=== PATIENT | male | born 1960 | race Caucasian/White ===

== ENCOUNTER 2022-03-14 21:13 | Emergency (ER) | payer MEDICAID ==
[~2022-03-14] VITALS: Ht 162.6 cm; Wt 52.2 kg
[2022-03-14 21:30] VITALS: BP 141/66
--- NOTE | 2022-03-14 22:34 | NUR ---
Patient taken to chair A.
--- NOTE | 2022-03-14 22:55 | NUR ---
Dr. Graves examining patient.
[2022-03-14] MEDS ORDERED: NACL 0.9% 1,000 ML IV ONE (23:05)
--- NOTE | 2022-03-14 23:11 | NUR ---
COVID-19 swabs collected and sent to lab.
[2022-03-14 23:24] LABS: BASOPHILS # (AUTO) 0.1 K/uL (0.00-0.22); BASOPHILS % (AUTO) 0.5 % (0.0-2.0); EOSINOPHILS % (AUTO) 0.2 % (0.0-4.0); HEMOGLOBIN 12.7 g/dL (12.0-18.0); LYMPHOCYTES # (AUTO) 1.5 K/uL (2.0-11.5); LYMPHOCYTES % (AUTO) 7.3 % (20.5-51.1); MEAN CORPUSCULAR HEMOGLOBIN 31 pg (27-31); MEAN CORPUSCULAR HGB CONC 34 g/dL (33-37); MEAN CORPUSCULAR VOLUME 88.9 fL (80-94); MONOCYTES # (AUTO) 1.1 K/uL (0.8-1.0); MONOCYTES % (AUTO) 5.2 % (1.7-9.3); NEUTROPHILS # (AUTO) 18.1 K/uL (1.8-7.7); PLATELET COUNT (AUTO) 552 K/uL (140-450); RED BLOOD CELL COUNT(AUTO) 4.16 MIL/uL (4.20-6.10); RED CELL DISTRIBUTION WIDTH 12.1 % (11.6-13.7); WHITE BLOOD COUNT (AUTO) 20.9 K/uL (4.8-10.8)
[2022-03-14] MEDS ORDERED: cefTRIAXone 1,000 MG VIAL ONE (23:27)
[2022-03-14 23:36] LABS: ANION GAP 16.8 (8-16); CARBON DIOXIDE 25.3 mmol/L (21-32); CREATININE 1.9 mg/dL (0.6-1.3); POTASSIUM 4.1 mmol/L (3.5-5.1)
--- NOTE | 2022-03-14 23:36 | NUR ---
Patient ambulated to bed 8.
[2022-03-14 23:57] LABS: NEUTROPHILS % (AUTO) 86.8 % (42.2-75.2)
--- NOTE | 2022-03-15 00:04 | NUR ---
PT TAKEN TO CT
--- NOTE | 2022-03-15 00:14 | NUR ---
PT RETURN FROM CT
--- NOTE | 2022-03-15 00:43 | NUR ---
61YR OLD MALE BIB SELF C/O SWOLLEN JAW S/P DENTAL SURGERY. SWELLING X1WK 10/10 PAIN CURRENTLY. PT DENIES ANY SOB OR CP . TALKING IN FULL SENTENCES NO DISTRESS NOTED. SKIN WARM AND DRY. SKIN INTACT. PT IS A&OX4. PT RESTING IN BED. HOB ELEVATED. BED AT LOWEST POSITION. NKDA NO MED HX TO NOTE
--- NOTE | 2022-03-15 02:47 | NUR ---
PT RESTING RESP EVEN AND UNLABORED. HOB ELEVATED. NO DISTRESS NOTED. DENIES ANY PAIN CURRENTLY. PENDING DISPO.
--- NOTE | 2022-03-15 03:18 | NUR ---
Dr. Graves explained results and treatment plans.
[2022-03-15] MEDS ORDERED: ACET-8386 PO (03:37)
[2022-03-15] MEDS ORDERED: CEPH-588 PO (03:37)
[2022-03-15] MEDS ORDERED: IBUP-2213 PO (03:37)
[2022-03-15 04:03] VITALS: BP 127/62
--- NOTE | 2022-03-15 04:03 | NUR ---
Patient discharged with v/s stable. Written and verbal after care instructions given and explained. Patient alert, oriented and verbalized understanding of instructions. Ambulatory with steady gait. All questions addressed prior to discharge. ID band removed. Patient advised to follow up with PMD. Rx of KEFLEX HYDROCODON IBUPROFEN given. Patient educated on indication of medication including possible reaction and side effects. Opportunity to ask questions provided and answered.
== END 2022-03-15 04:03 | disposition home or self-care (01) ==
LOC: MED 21:13
DX: L02.01 Cutaneous abscess of face (principal); Z20.822 Contact with and (suspected) exposure to COVID-19
CPT/HCPCS: 36415; 70487; 80048; 85025; 87040; 87426; 96365; 99285; J0696; J7030; Q9967

== ENCOUNTER 2022-03-17 10:03 | Inpatient (IN) | payer MEDICAID ==
[~2022-03-17] VITALS: Ht 162.6 cm; Wt 52.7 kg
[~2022-03-17 10:03] MED LIST: ACET-8386 PO; CEPH-588 PO; IBUP-2213 PO
[2022-03-17 10:17] VITALS: BP 119/60
--- NOTE | 2022-03-17 10:30 | NUR ---
BIB SELF C/O FACIAL SWELLING X 2 WEEKS. SEEN HERE SAME S/S 3 DAYS AGO.
--- NOTE | 2022-03-17 11:44 | NUR ---
PT AMBULATED TO ER BED 7
--- NOTE | 2022-03-17 11:59 | NUR ---
LUDY QUEZADA AT BEDSIDE FOR EVALUATION
--- NOTE | 2022-03-17 12:00 | NUR ---
61YO MALE PT C/O FACIAL PAIN X2 WEEKS. PT HAD 2 MOLARS REMOVED IN THE PAST 2 WEEKS AND HAVING INCREASED PAIN / SWELLING SINCE. PT PRESENTS WITH +1 [place] FACIAL SWELLING W/ MORE NOTED IN L SIDE W/ RADIATION TO L SIDE OF NECK . SITE TENDER TO TOUCH AND HAS PAIN ON MOVEMENT. PT WAS SEEN HERE ON THE AND D/C WITH NORO AND ANTIBIOTICS , STATES BEING COMPLIANT W/ NO RELIEF. DENIES N/V/D , SOB CHEST PAIN. PT AAOX4, RESPIRATIONS EVEN AND UNLABORED. HX: DENIES NKA
[2022-03-17] MEDS ORDERED: AMPICILLIN/SULBACTAM 3 GM VIAL IM ONE (12:05)
[2022-03-17] MEDS ORDERED: NACL 0.9% 1,000 ML IV ONE ×2 (12:05→16:50)
[2022-03-17] MEDS ORDERED: MORPHINE SULFATE 4 MG/ML SYR IVP ONE ×2 (12:10→14:55)
--- NOTE | 2022-03-17 12:24 | NUR ---
PATIENT RECEIVED 4MG MORPHINE IVP ORDERED, PER PATIENT HE HAS A RIDE HOME, VERBALIZED UNDERSTANDING HE CANNOT DRIVE HOME.
[2022-03-17 12:42] LABS: BASOPHILS # (AUTO) 0.1 K/uL (0.00-0.22); BASOPHILS % (AUTO) 0.7 % (0.0-2.0); EOSINOPHILS % (AUTO) 0.1 % (0.0-4.0); HEMATOCRIT 35.3 % (36-52); HEMOGLOBIN 11.8 g/dL (12.0-18.0); LYMPHOCYTES # (AUTO) 1.1 K/uL (2.0-11.5); LYMPHOCYTES % (AUTO) 5.5 % (20.5-51.1); MEAN CORPUSCULAR HEMOGLOBIN 30 pg (27-31); MEAN CORPUSCULAR HGB CONC 34 g/dL (33-37); MONOCYTES # (AUTO) 1.1 K/uL (0.8-1.0); MONOCYTES % (AUTO) 5.1 % (1.7-9.3); NEUTROPHILS # (AUTO) 18.5 K/uL (1.8-7.7); NEUTROPHILS % (AUTO) 88.6 % (42.2-75.2); PLATELET COUNT (AUTO) 667 K/uL (140-450); RED BLOOD CELL COUNT(AUTO) 3.93 MIL/uL (4.20-6.10); RED CELL DISTRIBUTION WIDTH 11.9 % (11.6-13.7); WHITE BLOOD COUNT (AUTO) 20.9 K/uL (4.8-10.8)
[2022-03-17 12:53] LABS: ALBUMIN 2.7 g/dL (3.4-5.0); ANION GAP 17.1 (8-16); CARBON DIOXIDE 24.9 mmol/L (21-32); CREATININE 1.5 mg/dL (0.6-1.3); TOTAL BILIRUBIN 0.5 mg/dL (0.0-1.0)
[2022-03-17] MEDS ORDERED: NACL 0.9% 500 ML IV ONE (13:45)
--- NOTE | 2022-03-17 13:59 | NUR ---
RICO SWAB COLLECTED AND WALKED TO LAB
--- NOTE | 2022-03-17 16:36 | NUR ---
PT AMBULATORY TO RESTROOM
--- NOTE | 2022-03-17 16:39 | NUR ---
PT AMBULATORY BACK TO ROOM
[2022-03-17] MEDS ORDERED: KETOROLAC 30 MG/ML VIAL IVP ONE (17:05)
[2022-03-17] MEDS ORDERED: KETOROLAC 30 MG/ML VIAL ONE (17:05)
[2022-03-17] MEDS: NACL 0.9% 1,000 ML IV SCH (17:08)
[2022-03-17] MEDS ORDERED: ONDANSETRON 4 MG/2 ML VIAL IM/IVP PRN (17:25)
[2022-03-17] MEDS ORDERED: DOCUSATE SODIUM 100 MG GELCAP PO PRN (17:25)
[2022-03-17] MEDS ORDERED: guaiFENesin DM 200/20 MG-10 ML 10 ML UDC PO PRN (17:25)
[2022-03-17] MEDS ORDERED: ZOLPIDEM 5 MG TAB PO PRN (17:25)
[2022-03-17] MEDS ORDERED: CLINICAL MONITORING MC PRN (17:40)
[2022-03-17 18:00] VITALS: BP 150/70
[2022-03-17] MEDS ORDERED: PIPERACILLIN/TAZOBACTAM 3.375 GM in DEXTROSE 5% 50 ML IV SCH (18:00)
--- NOTE | 2022-03-17 18:00 | NUR ---
RECEIVED PT FROM ENGINEERING PSYCHOLOGIST, VIA WHEELCHAIR, PT IS ALERT, AWAKE AND ORIENTED, ON ROOM AIR, AMBULATED TO THE BED, IV LINE NOTED ON THE LAC G. 20 WITH NS INFUSING AT AT 125ML/HR, INTACT, NO SIGN OF DISTRESS NOTED AND WILL CONTINUE TO MONITOR PT.
--- NOTE | 2022-03-17 18:00 | NUR ---
Patient will be admitted to care of MD BUTLER. Admited to [facility]. Will go to room 111A. Belongings list completed. Report to KASSIDY CHACKO. ALL QUESTIONS ANSWEREED
[2022-03-17 18:04] LABS: PROTHROMBIN TIME 11.5 secs (10.8-13.4)
--- NOTE | 2022-03-17 18:05 | NUR ---
The patient's care was reviewed and supervised by Christa Doty RN.
[2022-03-17 18:16] LABS: AMYLASE 127 U/L (25-115); CHOL/HDL RATIO 6.1 (1-4.5); FREE T4 (FREE THYROXINE) 1.15 ng/dL (0.76-1.46); HDL CHOLESTEROL 29 mg/dL (40-60); LDL (CALC) 122 mg/dL (60-100); LIPASE 54 U/L (73-393); MAGNESIUM 1.6 mg/dL (1.8-2.4); PHOSPHORUS 2.9 mg/dL (2.5-4.9); THYROID STIMULATING HORMONE 1.47 uIU/mL (0.34-3.74); TRIGLYCERIDES 128 mg/dL (30-150)
[2022-03-17] MEDS: PIPERACILLIN/TAZOBACTAM 2.25 GM in DEXTROSE 5% 50 ML IV SCH ×2 (18:17→23:41)
--- NOTE | 2022-03-17 18:17 | NUR ---
PT WAS GIVEN IVPB ZOSYN NOW.
--- NOTE | 2022-03-17 19:20 | NUR ---
ENDORSED PT TO NIGHT RN FOR CONTINUITY OF CARE, PT IS STABLE AT THIS TIME.
--- NOTE | 2022-03-17 19:21 | NUR ---
RECEIVED PT FROM MORNING SHIFT NURSE. PT IS SITTING ON BED WHILE WATCHING TV. PT IS AOX4, AMBULATORY, CAN VERBALIZE NEEDS AND CAN FOLLOW COMMANDS. PT IS ON ROOM AIR AND ON REGULAR DIET. PT HAS SALINE LOCK ON LEFT AC GAUGE 20. PT SKIN IS INTACT. NO COMPLAIN OF PAIN AT THIS TIME AND NO S/S OF RESPIRATORY DEPRESSION. ALL SAFETY MEASURES IMPLEMENTED. BED WHEELS ON LOCKED, BED IN LOW POSITION AND CALL LIGHT WITHIN REACH.
--- NOTE | 2022-03-17 23:41 | NUR ---
SCHEDULED PRESCRIBED MEDICATION WAS GIVEN TO PT PER MD ORDER. PT TOLERATED IT WELL. ALL SAFETY MEASURES IMPLEMENTED. CALL LIGHT WITHIN REACH, BED IN LOW POSITION AND BED WHEELS ON LOCK.
[2022-03-17] MEDS: ACETAMINOPHEN 325 MG TAB PO PRN (23:51)
--- NOTE | 2022-03-17 23:51 | NUR ---
PRN PAIN MEDICATION WAS GIVEN TO PT DUE TO HEADACHE. PT TOLERATED IT WELL. ALL SAFETY MEASURES IMPLEMENTED. CALL LIGHT WITHIN REACH, BED IN LOW POSITION AND BED WHEELS ON LOCK.
[2022-03-18] VITALS: BP 137/77
--- NOTE | 2022-03-18 00:33 | NUR ---
NOTIIED DR. ESCOBAR REGARDING THE PT MAGNESIUM LEVEL OF 1.6. DR. ESCOBAR ORDERED 400MG OF MAGNESIUM OXIDE PRN. ORDER WAS MADE AND CARRIED OUT.
[2022-03-18] MEDS ORDERED: MAGNESIUM OXIDE 400 MG TAB PO PRN (00:40)
[2022-03-18] MEDS ORDERED: MAGNESIUM OXIDE 400 MG TAB PO ONE (00:45)
[2022-03-18] MEDS: NACL 0.9% 1,000 ML IV SCH ×3 (00:55→16:50)
--- NOTE | 2022-03-18 02:00 | NUR ---
PT IS LYING ON THE BED AND SLEEP. CHEST RISE AND FALL SYMMETRICALLY NOTED. RESPIRATIONS ARE EVEN AND UNLABORED. ALL SAFETY MEASURES IMPLEMENTED. BED WHEELS ON LOCKED, BED IN LOW POSITION AND CALL LIGHT WITHIN REACH.
[2022-03-18 02:23] LABS: APPEARANCE,URINE CLEAR (CLEAR); BILIRUBIN,URINE NEGATIVE (NEGATIVE); COLOR,URINE YELLOW (YELLOW); LEUKOCYTE ESTERASE ,URINE NEGATIVE (NEGATIVE); NITRITE, URINE NEGATIVE (NEGATIVE); PH,URINE 5.5 (5.0-9.0); UGLUCOSE 3+ (NEGATIVE)
[2022-03-18 02:30] LABS: BLOOD, URINE NEGATIVE (NEGATIVE)
[2022-03-18 02:36] LABS: BARBITURATE, URINE NEGATIVE ng/ml (NEG <=200); BENZODIAZEPINE, URINE NEGATIVE ng/mL (NEG <=200); CANNABINOID, URINE NEGATIVE ng/mL (NEG <=50); COCAINE, URINE NEGATIVE ng/mL (NEG <=300); PHENCYCLIDINE SCREEN,URINE NEGATIVE ng/mL (NEG <=25)
[2022-03-18 02:37] LABS: OPIATE, URINE POSITIVE ng/mL (NEG <=2000)
[2022-03-18 04:00] VITALS: BP 147/70
--- NOTE | 2022-03-18 04:00 | NUR ---
CHECKED THE PT, STILL ON SLEEP. CHEST RISE AND FALL SYMMETRICALLY NOTED. RESPIRATIONS ARE EVEN AND UNLABORED WITH BP-147/70, P-99, T-99, RR-20 SATING AT 97%. ALL SAFETY MEASURES IMPLEMENTED. BED WHEELS ON LOCKED, BED IN LOW POSITION AND CALL LIGHT WITHIN REACH.
[2022-03-18] MEDS: PIPERACILLIN/TAZOBACTAM 2.25 GM in DEXTROSE 5% 50 ML IV SCH (05:22)
[2022-03-18] MEDS: ACETAMINOPHEN 325 MG TAB PO PRN ×2 (06:51→19:50)
[2022-03-18 07:14] LABS: BASOPHILS % (AUTO) 0.2 % (0.0-2.0); EOSINOPHILS % (AUTO) 0.1 % (0.0-4.0); HEMATOCRIT 29.7 % (36-52); HEMOGLOBIN 10.4 g/dL (12.0-18.0); LYMPHOCYTES # (AUTO) 1.1 K/uL (2.0-11.5); LYMPHOCYTES % (AUTO) 5.4 % (20.5-51.1); MEAN CORPUSCULAR HEMOGLOBIN 31 pg (27-31); MEAN CORPUSCULAR HGB CONC 35 g/dL (33-37); MEAN CORPUSCULAR VOLUME 88.1 fL (80-94); MONOCYTES # (AUTO) 1.8 K/uL (0.8-1.0); MONOCYTES % (AUTO) 8.5 % (1.7-9.3); NEUTROPHILS # (AUTO) 17.8 K/uL (1.8-7.7); NEUTROPHILS % (AUTO) 85.8 % (42.2-75.2); PLATELET COUNT (AUTO) 582 K/uL (140-450); RED BLOOD CELL COUNT(AUTO) 3.37 MIL/uL (4.20-6.10); RED CELL DISTRIBUTION WIDTH 12.2 % (11.6-13.7); WHITE BLOOD COUNT (AUTO) 20.8 K/uL (4.8-10.8)
--- NOTE | 2022-03-18 07:14 | NUR ---
PT IS STABLE. ENDORSED PT TO MORNING SHIFT NURSE FOR CONTINUITY OF CARE.
--- NOTE | 2022-03-18 07:16 | NUR ---
RECEIVED REPORT FROM INSERTING MACHINE OPERATOR NURSE FOR CONTINUITY OF CARE. PATIENT ASLEEP BUT WAKE UP EASILY RESPIRATION EVEN AND NOT LABORED ON ROOM AIR. DENIES PAIN AT THIS TIME. IV SITE ON LEFT AC RADHA 20 RUNNING NS AT 125 ML/HOR. ALL SAFE MEASURE IN PLACE. PATIENT AMBULATE TO TOILET.
[2022-03-18 08:00] VITALS: BP 133/71
[2022-03-18 08:01] LABS: ANION GAP 16.8 (8-16); POTASSIUM 3.8 mmol/L (3.5-5.1)
[2022-03-18] MEDS: PANTOPRAZOLE 40 MG TABEC PO SCH (08:51)
--- NOTE | 2022-03-18 08:52 | NUR ---
PATIENT GIVEN HIS PANTOPRAZOLE. PATIENT EATING HIS BREAKFAST STATED ITS HARD TO SWALLOW DUE TO SWELLING NO CHOCKING NOTED ENCOURAGE TO EAT SLOWLY.
[2022-03-18] MEDS: HYDROcodone/APAP 7.5/325 MG 1 TAB PO PRN (11:26)
--- NOTE | 2022-03-18 11:27 | NUR ---
DR. ESCOBAR SPOKE TO PATIENT REGARDING THE PROGNOSIS AND WILL REFER TO SURGEON.
[2022-03-18] MEDS: PIPERACILLIN/TAZOBACTAM 3.375 GM in DEXTROSE 5% 50 ML IV SCH ×3 (11:57→23:13)
[2022-03-18 12:00] VITALS: BP 130/90
--- NOTE | 2022-03-18 12:06 | NUR ---
GAVE REPORT TO RICCO DUMONT FOR CONTINUITY OF CARE.
--- NOTE | 2022-03-18 12:06 | NUR ---
RECEIVED REPORT FROM ALEJANDRO MARTIN . ROUNDS , NO S/SX OF ACUTE DISTRESS NOTED , WILL CONT. TO MONITOR .
--- NOTE | 2022-03-18 13:26 | NUR ---
03/18/22 RD INITIAL ASSESSMENT COMPLETED PLEASE REFER TO NUTRITION ASSESSMENT UNDER CARE ACTIVITY FOR ESTIMATED NUTRITIONAL NEEDS. 1. RECOMMEND CCHO 60 GMS DIET TOLERATED 2. MONITOR NUTRITION RELATED LAB VALUES 3. PROVIDED PT DM NUTRITION THERAPY EDUCATION WITH HANDOUTS, PT SHOWED LITTLE INTEREST, PT SHOWED SIGNS OF PRECONTEMPLATION STAGE, BUT ACCEPTED HANDOUTS. 4. RD TO FOLLOW-UP 3-5 DAYS, MODERATE RISK REVIEWED BY HANSEL GUZMÁN RD
[2022-03-18] MEDS ORDERED: VANCOMYCIN PER PHARMACY MC PRN (13:50)
--- NOTE | 2022-03-18 14:51 | NUR ---
DC PLANNING SW MET WITH PATIENT AND PATIENTS DAUGHTER, MARISSA, AT BEDSIDE TO COMPLETE ASSESSMENT. PATIENT REPORTS RESIDING WITH HIS DAUGHTER AND SON IN [place] THAT DIFFERS FROM THE ADDRESS LISTED ON FACE SHEET. PATIENT REPORTS ADDRESS ON FILE HIS PARENTS AND PREFERS TO KEEP IT PRIMARY ADDRESS.PATIENT IDENTIFIES MARISSA RIVERA, DAUGHTER [phone] EMERGENCY CONTACT AND MEDICAL DECISION MAKER. [facility] AND [facility] OFFER[facility] BY [facility]. PATIENT REPORTED RECENTLY CHANGING HIS PCP, LAST VISIT TWO WEEKS AGO. PATIENT IS REPORTED TO HAVE AN APPT TOMORROW, 03/19 WITH NEW PCP, HOWEVER APPT WILL BE CANCELLED PATIENT IS IN HOSPITAL. PATIENT CURRENTLY IS NOT TAKING MEDICATION AND DENIES BARRIERS IN ACCESSING NEEDED MEDICATION. PATIENT REPORTS PICKING UP MEDICATION FROM [facility] [address] IN [place], WHEN NEEDED. PATIENT REPORTS ADEQUATE FOOD SOURCE AND ADEQUATE FAMILY SUPPORT. PATIENT DENIES MH/SA HX. PATIENT IS INDEPENDENT IN ALL ACTIVITIES AND DENIES USE OF DME. NO HX OF HH. PATIENT REPORTS DC PLAN IS TO RETURN HOME WITH FAMILY PROVIDING TRANSPORTATION AND AIDING IN CARE, IF REQUIRED. FAMILY DECLINED ADDITONAL RESOURCES OFFERED BY [facility].
[2022-03-18 16:00] VITALS: BP 128/66
--- NOTE | 2022-03-18 16:00 | NUR ---
NO COMPLAIN MADE . WILL CONT. TO MONITOR
[2022-03-18] MEDS: VANCOMYCIN 1,000 MG in NACL 0.9% 250 ML IV SCH (16:15)
--- NOTE | 2022-03-18 19:34 | NUR ---
MARISSA NICOLE [phone] - PT'S DAUGHTER - HIS BULLET LUBRICATING MACHINE OPERATOR AND NUMBERS .
--- NOTE | 2022-03-18 19:39 | NUR ---
ENDORSED - AWAKE - STABLE .
--- NOTE | 2022-03-18 19:40 | NUR ---
RECEIVED PT FROM MORNING SHIFT NURSE. PT IS SITTING ON BED WHILE WATCHING TV. PT IS AOX4, AMBULATORY, CAN VERBALIZE NEEDS AND CAN FOLLOW COMMANDS. PT IS ON ROOM AIR AND ON CCHO DIET. PT HAS IV ON LEFT AC GAUGE 20 RUNNING WITH NS AT 125ML/HR. PT SKIN IS INTACT. NO S/S OF RESPIRATORY DEPRESSION. ALL SAFETY MEASURES IMPLEMENTED. BED WHEELS ON LOCKED, BED IN LOW POSITION AND CALL LIGHT WITHIN REACH
--- NOTE | 2022-03-18 19:50 | NUR ---
PT WAS GIVEN PRN PAIN MEDICATION DUE TO HEADACHE. PT TOLERATED IT WELL. ALL SAFETY MEASURES IMPLEMENTED. CALL LIGHT WITHIN REACH, BED IN LOW POSITION AND BED WHEELS ON LOCK.
[2022-03-18 20:00] VITALS: BP 148/74
[2022-03-18] MEDS ORDERED: DEXTROSE 50% 50 ML SYR IVP PRN (21:55)
[2022-03-19] MEDS: NACL 0.9% 1,000 ML IV SCH ×3 (00:05→18:51)
--- NOTE | 2022-03-19 00:05 | NUR ---
HOOKED NEW IV NS RUNNING AT 125ML/HR. ALL SAFETY MEASURES IMPLEMENTED. CALL LIGHT WITHIN REACH, BED IN LOW POSITION AND BED WHEELS ON LOCK.
[2022-03-19] MEDS: HYDROcodone/APAP 7.5/325 MG 1 TAB PO PRN ×2 (02:20→07:48)
--- NOTE | 2022-03-19 02:20 | NUR ---
PRN PAIN MEDICATION WAS GIVEN TO PT DUE TO FACIAL PAIN PER MD ORDER. PT PAIN SCALE IS 6. ALL SAFETY MEASURES. BED WHEELS LOCKED, BED IN LOW POSITION AND CALL LIGHT WITHIN REACH.
--- NOTE | 2022-03-19 04:00 | NUR ---
PT VS BP-153/70, RR-20, NM-97, T-98.9 SATING AT 96%. PT HAS NO S/S OF RESPIRATORY DISTRESS NOTED. ALL SAFETY MEASURES IMPLEMENTED. CALL LIGHT WITHIN REACH, BED IN LOW POSITION AND BED WHEELS ON LOCK.
[2022-03-19] MEDS: PIPERACILLIN/TAZOBACTAM 3.375 GM in DEXTROSE 5% 50 ML IV SCH (05:06)
--- NOTE | 2022-03-19 05:06 | NUR ---
SCHEDULED PRESCRIBED MEDICINE WAS GIVEN TO PT PER MD ORDER. PT TOLERATED IT WELL. ALL SAFETY MEASURES IMPLEMENTED. CALL LIGHT WITHIN REACH, BED IN LOW POSITION AND BED WHEELS ON LOCK.
[2022-03-19] MEDS: BLOOD GLUCOSE MONITORING 1 DEV DEV FS SCH ×4 (06:46→21:09)
[2022-03-19] MEDS: INSULIN LISPRO SLIDING SCALE 100 UNITS/ML VIAL SUBQ PRN ×3 (06:49→21:11)
--- NOTE | 2022-03-19 06:49 | NUR ---
PT BLOOD GLUCOSE IS 305. HUMALOG INSULIN 8 UNITS WAS GIVEN TO PT. ALL SAFETY MEASURES IMPLEMENTED. BED WHEELS ON LOCKED, BED IN LOW POSITION AND CALL LIGHT WITHIN REACH.
[2022-03-19 07:01] LABS: ANION GAP 19.5 (8-16); CARBON DIOXIDE 21.3 mmol/L (21-32); CREATININE 0.9 mg/dL (0.6-1.3); POTASSIUM 3.8 mmol/L (3.5-5.1)
[2022-03-19 07:09] LABS: BASOPHILS % (AUTO) 0.2 % (0.0-2.0); EOSINOPHILS % (AUTO) 0.1 % (0.0-4.0); HEMATOCRIT 29.9 % (36-52); HEMOGLOBIN 10.2 g/dL (12.0-18.0); LYMPHOCYTES # (AUTO) 1.1 K/uL (2.0-11.5); MEAN CORPUSCULAR HEMOGLOBIN 30 pg (27-31); MEAN CORPUSCULAR HGB CONC 34 g/dL (33-37); MEAN CORPUSCULAR VOLUME 88.5 fL (80-94); MONOCYTES # (AUTO) 1.6 K/uL (0.8-1.0); NEUTROPHILS # (AUTO) 19.7 K/uL (1.8-7.7); NEUTROPHILS % (AUTO) 87.7 % (42.2-75.2); PLATELET COUNT (AUTO) 600 K/uL (140-450); RED BLOOD CELL COUNT(AUTO) 3.38 MIL/uL (4.20-6.10); RED CELL DISTRIBUTION WIDTH 12.2 % (11.6-13.7); WHITE BLOOD COUNT (AUTO) 22.4 K/uL (4.8-10.8)
--- NOTE | 2022-03-19 07:18 | NUR ---
PT IS STABLE. ENDORSED PT TO MORNING SHIFT NURSE FOR CONTINUITY OF CARE.
[2022-03-19 08:00] VITALS: BP 140/65
[2022-03-19] MEDS: PANTOPRAZOLE 40 MG TABEC PO SCH (08:24)
--- NOTE | 2022-03-19 10:10 | NUR ---
DC PLANNING: THE PATIENT PRESENTED TO ED FROM HOME WITH C/O FACIAL PAIN AND SWELLING. S/P DENTAL EXTRACTIONS X 2 2 WEEKS AGO, WAS SEEN IN ED A FEW DAYS AGO AND DC'D WITH PO ABX WITHOUT IMPROVEMENT. WBC'S 20.9, CT OF FACIAL BONES WITH CONTRAST SHOWS FLUID COLLECTION SUSPICIOUS FOR ABSCESS AND CELLULITIS. ORDERS FOR ID AND SURGICAL CONSULTS, STARTED ON VANCO AND ZOSYN IV, BLOOD CULTURES IN PROCESS. WBC'S 22.4 TODAY, ORDER FOR [facility] FOR ENT CONSULT AND INTERVENTION. CM FAXED ORDER AND PACKET TO [facility] FOR REVIEW AND DIRECTION, CM WILL FOLLOW UP. Addendum: 03/19/22 at 1219 by Jayna Chu CM DC PLANNING: CM SPOKE WITH DARLINE GIBSON AT [facility] REGARDING HLOC ([phone]). THEY HAVEN'T YET REVIEWED THE FAX, CM DIRECTED TO REFER THE PATIENT TO [facility], CM WILL START PROCESS AND WILL FOLLOW. Addendum: 03/19/22 at 1324 by Jayna Chu CM DC PLANNING: CM SPOKE WITH [facility] TRANSFER [facility], THEY ARE UNABLE TO ACCEPT REFERERALS OR FAXED REFERRALS TODAY THEY ARE AT [place]. [facility] IS THE ONLY CONTRACTED [facility] WITH [facility], [facility] ASKED CM TO FOLLOW UP IN AM. CM WILL FOLLOW.
--- NOTE | 2022-03-19 11:00 | NUR ---
ID aware of consult.
[2022-03-19] MEDS: PIPERACILLIN/TAZOBACTAM 3.375 GM in NACL 0.9% 50 ML IV SCH ×2 (12:00→18:33)
[2022-03-19] MEDS ORDERED: LIDOCAINE/EPI MPF 1%1:200000 30 ML VIAL INJ ONE (15:47)
[2022-03-19] MEDS ORDERED: BUPIVACAINE-MPF 0.25% 30 ML VIAL INJ ONE (15:47)
[2022-03-19 16:00] VITALS: BP 162/78
[2022-03-19] MEDS ORDERED: fentaNYL citrate 0.05 MG/ML VIAL ONE ×2 (16:39→17:12)
[2022-03-19] MEDS ORDERED: MIDAZOLAM 2 MG/2 ML VIAL ONE (16:39)
[2022-03-19] MEDS ORDERED: SUCCINYLCHOLINE CHLORIDE 200 MG/10 ML VIAL IVP ONE (16:40)
[2022-03-19] MEDS ORDERED: SEVOFLURANE 250 ML BTL INH ONE (16:40)
[2022-03-19] MEDS ORDERED: PROPOFOL 200 MG/20 ML VIAL IV ONE (16:40)
[2022-03-19] MEDS ORDERED: ONDANSETRON 4 MG/2 ML VIAL ONE (17:28)
[2022-03-19] MEDS ORDERED: ONDANSETRON 4 MG/2 ML VIAL IVP PRN (17:35)
[2022-03-19] MEDS ORDERED: fentaNYL citrate 0.05 MG/ML VIAL IVP ONE (17:35)
[2022-03-19] MEDS ORDERED: ACETAMINOPHEN 100 ML IV ONE (17:37)
--- NOTE | 2022-03-19 17:49 | NUR ---
Received pt A/Ox4 with 10/10 R facial pain. [place] 7.5mg given to patient. Pt sleeping an hour after given. No appetite. Breakfast not ate. Pt made NPO at lunch time for pending surgery. No consent order for patient. Pt picked up by surgery at 1500. All belongings removed. Valuables left with son. LAC PIV found to be without tegaderm and taped in place. PIV fell out. New 22ga LH PIV started on RH after 3 attempts.
[2022-03-19] MEDS: ACETAMINOPHEN 100 ML IV PRN ×2 (17:50→18:04)
[2022-03-19 18:24] VITALS: BP 110/64
[2022-03-19] MEDS ORDERED: VANCOMYCIN 1,000 MG VIAL ONE (20:58)
[2022-03-19] MEDS: VANCOMYCIN 1,000 MG in NACL 0.9% 250 ML IV SCH (21:08)
[2022-03-19] MEDS: ATORVASTATIN 20 MG TAB PO SCH (21:12)
--- NOTE | 2022-03-19 22:00 | NUR ---
ALL DUE MEDS GIVEN ORDERED. NO ADVERSE DRUG REACTION NOTED AND NO COMPLAIN FROM THE PATIENT. WILL CONTINUE OBSERVATION. CALL LIGHT WITHIN REACH.
--- NOTE | 2022-03-19 23:15 | NUR ---
CHANGED THE PATIENT DRESSING ON HIS CHIN. ARSEN DRAIN ON THE RIGHT AND LEFT MANDIBLE DRAINING SEROSANGUINEOUS FLUID.
[2022-03-19] MEDS ORDERED: AMPICILLIN/SULBACTAM 3 GM VIAL ONE (23:30)
[2022-03-19] MEDS: AMPICILLIN/SULBACTAM 3 GM in NACL 0.9% 100 ML IV SCH (23:36)
[2022-03-20] VITALS: BP 119/63
--- NOTE | 2022-03-20 | NUR ---
PATIENT VITALS SIGNS STABLE, AFEBRILE,SATING 96% ON RA. NOT IN ANY DISTRESS AND NO COMPLAIN AT THIS TIME. CALL LIGHT WITHIN REACH.
[2022-03-20] MEDS: NACL 0.9% 1,000 ML IV SCH ×3 (00:50→17:40)
--- NOTE | 2022-03-20 02:00 | NUR ---
MADE ROUNDS PATIENT ASLEEP AT THIS TIME. VISIBLE CHEST RISE AND FALL NOTED. WILL CONTINUE OBSERVATION. CALL LIGHT WITHIN REACH.
--- NOTE | 2022-03-20 04:00 | NUR ---
PATIENT WALKED TO THE BATHROOM AND TOLERATED IT WELL.
[2022-03-20] MEDS ORDERED: AMPICILLIN/SULBACTAM 3 GM VIAL ONE (04:29)
[2022-03-20] MEDS: AMPICILLIN/SULBACTAM 3 GM in NACL 0.9% 100 ML IV SCH ×4 (05:06→23:45)
[2022-03-20] MEDS: HYDROcodone/APAP 7.5/325 MG 1 TAB PO PRN ×3 (05:20→23:33)
--- NOTE | 2022-03-20 06:18 | NUR ---
NO ACUTE EVENT THROUGHOUT THE NIGHT. PATIENT STABLE , NOT IN ANY DISTRESS AND NO COMPLAIN AT THIS TIME.ALL NEEDS ATTENDED. WILL ENDORSE THE PATIENT TO THE ONCOMING RN FOR CONTINUITY OF CARE.
[2022-03-20] MEDS: INSULIN LISPRO SLIDING SCALE 100 UNITS/ML VIAL SUBQ PRN ×4 (06:31→20:52)
[2022-03-20] MEDS: BLOOD GLUCOSE MONITORING 1 DEV DEV FS SCH ×4 (06:31→20:49)
[2022-03-20 07:13] LABS: BASOPHILS % (AUTO) 0.2 % (0.0-2.0); EOSINOPHILS # (AUTO) 0.2 K/uL (0-0.4); EOSINOPHILS % (AUTO) 0.9 % (0.0-4.0); HEMATOCRIT 28.4 % (36-52); HEMOGLOBIN 9.7 g/dL (12.0-18.0); LYMPHOCYTES # (AUTO) 1.2 K/uL (2.0-11.5); LYMPHOCYTES % (AUTO) 5.9 % (20.5-51.1); MEAN CORPUSCULAR HEMOGLOBIN 30 pg (27-31); MEAN CORPUSCULAR HGB CONC 34 g/dL (33-37); MEAN CORPUSCULAR VOLUME 88.8 fL (80-94); MONOCYTES # (AUTO) 1.3 K/uL (0.8-1.0); MONOCYTES % (AUTO) 6.2 % (1.7-9.3); NEUTROPHILS # (AUTO) 17.7 K/uL (1.8-7.7); NEUTROPHILS % (AUTO) 86.8 % (42.2-75.2); PLATELET COUNT (AUTO) 586 K/uL (140-450); RED CELL DISTRIBUTION WIDTH 12.4 % (11.6-13.7); WHITE BLOOD COUNT (AUTO) 20.4 K/uL (4.8-10.8)
--- NOTE | 2022-03-20 07:33 | NUR ---
got report from the night nurse, pt awake discussed plan of care for the day.[email or web address]
[2022-03-20 07:42] LABS: ANION GAP 18.1 (8-16); CARBON DIOXIDE 21.3 mmol/L (21-32); CREATININE 0.8 mg/dL (0.6-1.3); POTASSIUM 3.4 mmol/L (3.5-5.1)
[2022-03-20 08:00] VITALS: BP 135/64
[2022-03-20] MEDS: PANTOPRAZOLE 40 MG TABEC PO SCH (08:28)
[2022-03-20] MEDS: INSULIN LANTUS 100 UNITS/ML 10 ML VIAL SUBQ SCH (08:34)
[2022-03-20 16:00] VITALS: BP 135/64
[2022-03-20] MEDS: POTASSIUM CHLORIDE 10 MEQ TABER PO PRN (16:09)
--- NOTE | 2022-03-20 16:54 | NUR ---
PT TRANSFERRED TO ICU C\CP, BEFORE THE TRANSFER GIVEN 4 TABLET NITROGLYCERINE SUBLINGUAL, AND MS 2MG IV PUSH ALSO CHEWABLE ASPIRIN 80MG X4 [id number]
[2022-03-20 19:55] VITALS: BP 158/76
--- NOTE | 2022-03-20 20:09 | NUR ---
RECEIVED REPORT OF PT IN STABLE CONDITION.RESP.UNLABORED.IVF INFUSING WELL.DRESSING PATENT ON FACE.CALL LIGHT WITHIN REACH.DENIED PAIN.WILL CONTINUE MONITORING.
[2022-03-20] MEDS: ATORVASTATIN 20 MG TAB PO SCH (20:50)
--- NOTE | 2022-03-20 20:57 | NUR ---
FU=605,COVERED PER SLIDING SCALE.
[2022-03-21 04:00] VITALS: BP 145/76
--- NOTE | 2022-03-21 04:59 | NUR ---
iv was infiltrated.started new iv line in rt.ac w/#22g.changed dressing around neck.
[2022-03-21] MEDS: AMPICILLIN/SULBACTAM 3 GM in NACL 0.9% 100 ML IV SCH ×4 (05:43→23:40)
[2022-03-21] MEDS: BLOOD GLUCOSE MONITORING 1 DEV DEV FS SCH ×4 (06:33→20:16)
[2022-03-21] MEDS: INSULIN LISPRO SLIDING SCALE 100 UNITS/ML VIAL SUBQ PRN ×3 (06:34→20:18)
--- NOTE | 2022-03-21 07:02 | NUR ---
ZE=498.COVERED PER SLIDING SCALE.NO DISTRESS AT THIS TIME.
[2022-03-21 07:16] LABS: BASOPHILS # (AUTO) 0.1 K/uL (0.00-0.22); BASOPHILS % (AUTO) 0.5 % (0.0-2.0); EOSINOPHILS # (AUTO) 0.3 K/uL (0-0.4); HEMATOCRIT 29.8 % (36-52); HEMOGLOBIN 10.4 g/dL (12.0-18.0); LYMPHOCYTES # (AUTO) 2.1 K/uL (2.0-11.5); LYMPHOCYTES % (AUTO) 18.9 % (20.5-51.1); MEAN CORPUSCULAR HEMOGLOBIN 31 pg (27-31); MEAN CORPUSCULAR HGB CONC 35 g/dL (33-37); MEAN CORPUSCULAR VOLUME 88.4 fL (80-94); MONOCYTES # (AUTO) 1.1 K/uL (0.8-1.0); NEUTROPHILS # (AUTO) 7.4 K/uL (1.8-7.7); NEUTROPHILS % (AUTO) 67.6 % (42.2-75.2); PLATELET COUNT (AUTO) 636 K/uL (140-450); RED BLOOD CELL COUNT(AUTO) 3.37 MIL/uL (4.20-6.10); RED CELL DISTRIBUTION WIDTH 12.5 % (11.6-13.7)
[2022-03-21] MEDS: NACL 0.9% 1,000 ML IV SCH ×3 (07:30→16:57)
[2022-03-21 07:31] LABS: ANION GAP 13.1 (8-16); CARBON DIOXIDE 26.5 mmol/L (21-32); CREATININE 0.6 mg/dL (0.6-1.3); POTASSIUM 3.6 mmol/L (3.5-5.1)
[2022-03-21] MEDS: INSULIN LANTUS 100 UNITS/ML 10 ML VIAL SUBQ SCH (09:00)
[2022-03-21] MEDS: PANTOPRAZOLE 40 MG TABEC PO SCH (09:00)
[2022-03-21] MEDS: HYDROcodone/APAP 7.5/325 MG 1 TAB PO PRN (10:53)
[2022-03-21 12:52] VITALS: BP 151/70
--- NOTE | 2022-03-21 17:02 | NUR ---
pt vitals stable, no signs of distress, pt family concerned about his HLOC OF ENT transfer, MD notified, family member notified about the case finishing machine adjuster working on his case and usually takes time.
--- NOTE | 2022-03-21 18:48 | NUR ---
patint neck dressing changed
[2022-03-21] MEDS: ACETAMINOPHEN 325 MG TAB PO PRN (18:56)
--- NOTE | 2022-03-21 19:05 | NUR ---
RECEIVED PT FROM MORNING SHIFT NURSE. PT IS SITTING ON BED WHILE WATCHING TV. RELATIVE IS IN BEDSIDE. PT IS AOX4, AMBULATORY, CAN VERBALIZE NEEDS AND CAN FOLLOW COMMANDS. PT IS ON ROOM AIR AND ON FULL LIQUID DIET. PT HAS IV ON RIGHT AC GAUGE 22 RUNNING WITH NS AT 125ML/HR. PT SKIN IS INTACT. NO S/S OF RESPIRATORY DEPRESSION. ALL SAFETY MEASURES IMPLEMENTED. BED WHEELS ON LOCKED, BED IN LOW POSITION AND CALL LIGHT WITHIN REACH
--- NOTE | 2022-03-21 19:56 | NUR ---
NOTIFIED DR. SUAREZ REGARDING PT BP HIGHEST BP-173/82 AND THE LOWEST BP-167/80. DR. SUAREZ ORDERED HYDRALAZINE 10MG Q6H PRN IF SYSTOLIC IS >160. ORDER WAS MADE AND CARRIED OUT.
[2022-03-21 20:00] VITALS: BP 167/80
[2022-03-21] MEDS: ATORVASTATIN 20 MG TAB PO SCH (20:12)
--- NOTE | 2022-03-21 20:16 | NUR ---
ALL PRESCRIBED SCHEDULED MEDICATION WAS GIVEN TO PT PER MD ORDER. PT TOLERATED IT WELL. ALL SAFETY MEASURES IMPLEMENTED. BED WHEELS ON LOCKED, BED IN LOW POSITION AND CALL LIGHT WITHIN REACH.
[2022-03-21] MEDS: hydrALAZINE 20 MG/ML VIAL IVP PRN (20:25)
--- NOTE | 2022-03-21 23:40 | NUR ---
SCHEDULED PRESCRIBED MEDICATION WAS GIVEN TO PT PER MD ORDER. PT TOLERATED IT WELL. ALL SAFETY MEASURES IMPLEMENTED. BED WHEELS ON LOCKED, BED IN LOW POSITION AND CALL LIGHT WITHIN REACH.
--- NOTE | 2022-03-22 01:00 | NUR ---
PT IS SLEEPING. CHEST RISE AND FALL SYMMETRICALLY NOTED. NO S/S OF RESPIRATORY DISTRESS NOTED. ALL SAFETY MEASURES IMPLEMENTED. BED IN LOW POSITION, BED WHEELS ON LOCKED AND CALL LIGHT WITHIN REACH.
[2022-03-22] MEDS: NACL 0.9% 1,000 ML IV SCH ×3 (01:13→16:58)
[2022-03-22] MEDS: HYDROcodone/APAP 7.5/325 MG 1 TAB PO PRN (03:26)
--- NOTE | 2022-03-22 03:26 | NUR ---
PT COMPLAIN PAIN ON RIGHT JAW WITH THE PAIN SCALE OF 6/10. PRN PAIN MEDICATION PER MD ORDER WAS GIVEN. PT TOLERATED IT WELL. ALL SAFETY MEASURES IMPLEMENTED. BED IN LOW POSITION, BED WHEELS ON LOCKED AND CALL LIGHT WITHIN REACH.
[2022-03-22 04:00] VITALS: BP 172/79
[2022-03-22] MEDS: hydrALAZINE 20 MG/ML VIAL IVP PRN (04:12)
--- NOTE | 2022-03-22 04:12 | NUR ---
PRN HYDRALAZINE 10MG IV PUSH WAS GIVEN TO PT PER MD ORDER DUE TO BP- 172/79. ALL SAFETY MEASURES IMPLEMENTED. BED IN LOW POSITION, BED WHEELS ON LOCKED AND CALL LIGHT WITHIN REACH.
[2022-03-22] MEDS: AMPICILLIN/SULBACTAM 3 GM in NACL 0.9% 100 ML IV SCH ×3 (05:08→17:44)
--- NOTE | 2022-03-22 05:12 | NUR ---
REASSESS PT AFTER 1 HR OF GIVING HYDRALAZINE 10MG IV PUSH. CURRENT BP- 124/68 WITH PULSE OF-93. ALL SAFETY MEASURES IMPLEMENTED. BED IN LOW POSITION, BED WHEELS ON LOCKED AND CALL LIGHT WITHIN REACH.
[2022-03-22] MEDS: BLOOD GLUCOSE MONITORING 1 DEV DEV FS SCH ×4 (06:31→20:45)
--- NOTE | 2022-03-22 06:31 | NUR ---
PT BLOOD GLUCOSE IS 169. HUMALOG INSULIN 2 UNITS WAS GIVEN TO PT. ALL SAFETY MEASURES IMPLEMENTED. BED IN LOW POSITION, BED WHEELS ON LOCKED AND CALL LIGHT WITHIN REACH.
[2022-03-22] MEDS: INSULIN LISPRO SLIDING SCALE 100 UNITS/ML VIAL SUBQ PRN ×4 (06:35→20:47)
[2022-03-22 07:06] LABS: BASOPHILS % (AUTO) 0.3 % (0.0-2.0); EOSINOPHILS # (AUTO) 0.1 K/uL (0-0.4); EOSINOPHILS % (AUTO) 1.6 % (0.0-4.0); HEMATOCRIT 30.4 % (36-52); HEMOGLOBIN 10.5 g/dL (12.0-18.0); LYMPHOCYTES # (AUTO) 1.8 K/uL (2.0-11.5); LYMPHOCYTES % (AUTO) 19.4 % (20.5-51.1); MEAN CORPUSCULAR HEMOGLOBIN 30 pg (27-31); MEAN CORPUSCULAR HGB CONC 35 g/dL (33-37); MEAN CORPUSCULAR VOLUME 87.5 fL (80-94); MONOCYTES # (AUTO) 0.9 K/uL (0.8-1.0); MONOCYTES % (AUTO) 9.5 % (1.7-9.3); NEUTROPHILS # (AUTO) 6.3 K/uL (1.8-7.7); NEUTROPHILS % (AUTO) 69.2 % (42.2-75.2); PLATELET COUNT (AUTO) 657 K/uL (140-450); RED BLOOD CELL COUNT(AUTO) 3.47 MIL/uL (4.20-6.10); RED CELL DISTRIBUTION WIDTH 12.7 % (11.6-13.7); WHITE BLOOD COUNT (AUTO) 9.1 K/uL (4.8-10.8)
[2022-03-22 07:10] LABS: ANION GAP 11.6 (8-16); CARBON DIOXIDE 29.7 mmol/L (21-32); CREATININE 0.7 mg/dL (0.6-1.3); POTASSIUM 3.3 mmol/L (3.5-5.1)
--- NOTE | 2022-03-22 07:23 | NUR ---
PT IS STABLE. ENDORSED PT TO MORNING SHIFT NURSE FOR CONTINUITY OF CARE.
[2022-03-22 08:00] VITALS: BP 148/68
[2022-03-22] MEDS: PANTOPRAZOLE 40 MG TABEC PO SCH (09:15)
[2022-03-22] MEDS: INSULIN LANTUS 100 UNITS/ML 10 ML VIAL SUBQ SCH (09:16)
[2022-03-22] MEDS: POTASSIUM CHLORIDE 10 MEQ TABER PO PRN (09:19)
[2022-03-22 16:00] VITALS: BP 144/64
--- NOTE | 2022-03-22 19:33 | NUR ---
ENDORSE PATIENT TO PM SHIFT NURSE WITH STABLE CONDITION W/ NO ACUTE DISTRESS NOTED. PIV INFUSING NS @125ML VIA RAC
--- NOTE | 2022-03-22 19:34 | NUR ---
RECEIVED SHIFT REPORT FROM XIOMARA CHACKO. PATIENT WAS STABLE DURING SHIFT REPORT. PATIENT IN BED ASLEEP BUT ANSWERS WHEN HIS NAME WAS CALLED. NOTED DRESSING CHANGE ON NECK. CLEAN AND DRY. NO NOTED S/S OF PAIN/DISCOMFORT. NO NOTED RESPIRATORY DISTRESS. SIDE RAILS UP X 2 FOR COMFORT. KEPT CLEAN AND DRY. BED NOTED AT THE LOWEST LEVEL SEMI HARRIS POSITION. CALL LIGHT WITHIN REACH AND ENCOURAGED TO USE IF FOR ALL ASSISTANCE. [email or web address]
[2022-03-22] MEDS: ATORVASTATIN 20 MG TAB PO SCH (20:48)
--- NOTE | 2022-03-22 23:06 | NUR ---
Patient's Plan of Care was discussed and reviewed with ALEJANDRO GRANADOS
--- NOTE | 2022-03-22 23:21 | NUR ---
PATIENT IN BED ASLEEP. KEPT CLEAN AND DRY. CALL LIGHT WITHIN REACH. SIDE RAILS UP X 2. [email or web address]
--- NOTE | 2022-03-22 23:22 | NUR ---
PATIENT NOTED DOSING OFF WATCHING TV. SIDE RAILS UP X 2. CALL LIGHT WITHIN REACH. NO NOTED S/S OF PAIN/DISCOMFORT. NO S/S OF RESPIRATORY DISTRESS. [email or web address]
[2022-03-23] MEDS: AMPICILLIN/SULBACTAM 3 GM in NACL 0.9% 100 ML IV SCH ×3 (00:05→12:06)
[2022-03-23] MEDS: NACL 0.9% 1,000 ML IV SCH ×2 (00:50→09:44)
--- NOTE | 2022-03-23 01:45 | NUR ---
NURSING NOTED DRESSING WAS SOILED AND CHANGED THE DRESSING. PATIENT TOLERATED IT WELL. PATIENT DENIED PAIN/DISCOMFORT. NO NOTED RESPIRATORY DISTRESS. SIDE RAILS UP X 3 FOR COMFORT AND SAFETY. KEPT CALL LIGHT WITHIN REACH FOR ALL ASSISTANCE. [email or web address]
--- NOTE | 2022-03-23 03:36 | NUR ---
PATIENT IN BED ASLEEP. NO NOTED PAIN OR RESPIRATORY DISTRESS. SIDE RAILS UP X 2 CALL LIGHT WITHIN REACH. [email or web address]
[2022-03-23 04:00] VITALS: BP 189/84
[2022-03-23] MEDS: HYDROcodone/APAP 7.5/325 MG 1 TAB PO PRN (05:13)
--- NOTE | 2022-03-23 05:20 | NUR ---
PATIENT WAS GIVEN ORAL PRN FOR MODERATE PAIN. NOTED BLOOD PRESSURE OD 184/84 HR 89. WILL RECHECK IN ONE HOUR. NO NOTED ADVERSE EFFECTS AT THIS TIME. SIDE RAILS UP X 2 FOR SAFETY AND COMFORT. CALL LIGHT WITHIN REACH. NO NOTED S/S OR RESPIRATORY DISTRESS. [email or web address]
--- NOTE | 2022-03-23 06:43 | NUR ---
BLOOD PRESSURE WAS RECORDED AT 161/92 AND HR 87. COVERING RN WAS NOTIFIED. PATIENT DENIES PAIN/HEADACHE AT THIS TIME. WILL ENDORSE TO AM SHIFT. [email or web address]
[2022-03-23] MEDS: BLOOD GLUCOSE MONITORING 1 DEV DEV FS SCH ×2 (06:47→11:46)
[2022-03-23] MEDS: INSULIN LISPRO SLIDING SCALE 100 UNITS/ML VIAL SUBQ PRN ×2 (06:47→12:08)
[2022-03-23 07:15] LABS: ANION GAP 11.3 (8-16); CREATININE 0.7 mg/dL (0.6-1.3); POTASSIUM 3.3 mmol/L (3.5-5.1)
--- NOTE | 2022-03-23 07:19 | NUR ---
ENDORSED PATIENT TO XIOMARA RN, PATIENT WAS STABLE AT THE CHANGE OF SHIFT. [email or web address]
[2022-03-23 07:28] LABS: BASOPHILS # (AUTO) 0.1 K/uL (0.00-0.22); BASOPHILS % (AUTO) 0.8 % (0.0-2.0); EOSINOPHILS # (AUTO) 0.2 K/uL (0-0.4); EOSINOPHILS % (AUTO) 2.5 % (0.0-4.0); HEMATOCRIT 32.2 % (36-52); HEMOGLOBIN 11.4 g/dL (12.0-18.0); LYMPHOCYTES # (AUTO) 1.8 K/uL (2.0-11.5); LYMPHOCYTES % (AUTO) 24.5 % (20.5-51.1); MEAN CORPUSCULAR HEMOGLOBIN 31 pg (27-31); MEAN CORPUSCULAR HGB CONC 35 g/dL (33-37); MEAN CORPUSCULAR VOLUME 86.7 fL (80-94); MONOCYTES # (AUTO) 0.8 K/uL (0.8-1.0); MONOCYTES % (AUTO) 10.8 % (1.7-9.3); NEUTROPHILS # (AUTO) 4.5 K/uL (1.8-7.7); NEUTROPHILS % (AUTO) 61.4 % (42.2-75.2); PLATELET COUNT (AUTO) 684 K/uL (140-450); RED BLOOD CELL COUNT(AUTO) 3.71 MIL/uL (4.20-6.10); RED CELL DISTRIBUTION WIDTH 12.4 % (11.6-13.7); WHITE BLOOD COUNT (AUTO) 7.4 K/uL (4.8-10.8)
--- NOTE | 2022-03-23 07:33 | NUR ---
RECEIVE ENDORSEMENT FROM PM SHIFT NURSE WHILE PATIENT STABLE W/ NO ACUTE DISTRESS NOTED. PIV INFUSING NS @125ML VIA RAC. WILL CONTINUE TO MONITOR
[2022-03-23 08:00] VITALS: BP 159/82
[2022-03-23] MEDS: INSULIN LANTUS 100 UNITS/ML 10 ML VIAL SUBQ SCH (09:45)
[2022-03-23] MEDS: PANTOPRAZOLE 40 MG TABEC PO SCH (09:48)
[2022-03-23] MEDS: POTASSIUM CHLORIDE 10 MEQ TABER PO PRN (09:49)
[2022-03-23] MEDS ORDERED: LANTUS SUBQ (11:39)
[2022-03-23] MEDS ORDERED: AMOX-999 PO (11:39)
[2022-03-23] MEDS ORDERED: ATOR20TA40 PO (11:39)
[2022-03-23 13:33] VITALS: BP 159/82
--- NOTE | 2022-03-23 14:38 | NUR ---
DISCHARGE PATIENT PER PCP ORDER IN STABLE CONDITION. PATIENT WILL FOLLOW UP OUTPATIENT STATUS F/U FOR I & D PROCEDURE AT MANDIBULAR/JAW FOR FACIAL ABSCESS. DISCHARGE INSTRUCTION GIVEN, IV ACCESS & ID WRIST BAND REMOVED, WOUND DRESSING CHANGED.
== END 2022-03-23 14:42 | disposition home or self-care (01) | DRG 710 ==
LOC: MED 10:03 → MMU 16:49 → MTU 17:21
PROVIDERS: ADMIT Family Medicine; ATTEND Family Medicine
PROC: 0J9100Z Drainage of Face Subcutaneous Tissue and Fascia with Drainage Device, Open Approach (ICD-10-PCS; principal; 2022-03-19 16:00)
DX: A41.9 Sepsis, unspecified organism (principal); N17.0 Acute kidney failure with tubular necrosis; E43 Unspecified severe protein-calorie malnutrition; E87.1 Hypo-osmolality and hyponatremia; L02.11 Cutaneous abscess of neck; E11.65 Type 2 diabetes mellitus with hyperglycemia; D75.838 Other thrombocytosis; E78.5 Hyperlipidemia, unspecified; E83.42 Hypomagnesemia; K12.2 Cellulitis and abscess of mouth; Z20.822 Contact with and (suspected) exposure to COVID-19; K04.7 Periapical abscess without sinus; L03.211 Cellulitis of face; Z79.891 Long term (current) use of opiate analgesic; Z79.899 Other long term (current) drug therapy; Z79.1 Long term (current) use of non-steroidal anti-inflammatories (NSAID)
CPT/HCPCS: 36415; 70487; 71045; 80048; 80053; 80305; 81003; 82150; 82803; 82948; 83036; 83605; 83690; 83735; 83880; 84100; 84436; 84439; 84443; 84479; 84484; 85025; 85610; 85730; 87040; 87070; 87075; 87081; 87205; 96372; 96374; 96375; 96376; 99285; J0295; J0330; J0360; J1815; J1885; J2001; J2250; J2270; J2405; J2543; J2704; J3010; J3370; J3490; J7030; J7060; Q9967

== ENCOUNTER 2024-04-19 13:16 | Emergency (ER) | payer BC, MEDICAID ==
[~2024-04-19] VITALS: Ht 165.1 cm; Wt 61.3 kg
[~2024-04-19 13:16] MED LIST changes: -ACET-8386 PO; +AMOX-999 PO; +ATOR20TA40 PO; -CEPH-588 PO; +LANTUS SUBQ
[2024-04-19 13:33] VITALS: BP 176/90; PULSE 81; RESP 18; TEMP 97.8; O2SAT 99
[2024-04-19] MEDS ORDERED: DICL20GE TP (14:25)
[2024-04-19] MEDS ORDERED: NAPR-1704 PO (14:25)
[2024-04-19 14:36] VITALS: BP 176/90; PULSE 81; RESP 18; TEMP 97.8; O2SAT 99
== END 2024-04-19 14:36 | disposition home or self-care (01) ==
LOC: MED 13:16
DX: M25.531 Pain in right wrist (principal); I10 Essential (primary) hypertension; E11.9 Type 2 diabetes mellitus without complications; Z79.899 Other long term (current) drug therapy; Z79.4 Long term (current) use of insulin
CPT/HCPCS: 73110; 99283